=== PATIENT | male | born 1970 | race Caucasian/White ===

== ENCOUNTER 2022-02-11 02:43 | Emergency (ER) | payer BC ==
[~2022-02-11] VITALS: Ht 172.7 cm; Wt 76.2 kg
[2022-02-11 02:52] VITALS: BP_SYST 160
--- NOTE | 2022-02-11 02:56 | NUR ---
PER PATIENT, HAS BEEN HAVING LOWER ABDOMINAL PAIN X A FEW HOURS WITH ONE EPISODE OF VOMITING.
--- NOTE | 2022-02-11 03:17 | NUR ---
PATIENT BROUGHT TO ROOM 8 FOR EVAL, REPORT GIVEN TO DEANDRE LIANG.
--- NOTE | 2022-02-11 03:20 | NUR ---
PRINCE Maki at bedside examining patient.
[2022-02-11 03:49] LABS: BASOPHILS # (AUTO) 0.1 K/uL (0.0-0.2); BASOPHILS % (AUTO) 0.7 % (0.0-2.0); EOSINOPHILS # (AUTO) 0.3 K/uL (0.0-0.4); EOSINOPHILS % (AUTO) 2.3 % (0.0-4.0); HEMATOCRIT 40.9 % (36-54); HEMOGLOBIN 14.2 g/dL (14.0-18.0); LYMPHOCYTES # (AUTO) 2.5 K/uL (1.0-5.5); LYMPHOCYTES % (AUTO) 21.5 % (20.5-51.5); MEAN CORPUSCULAR HEMOGLOBIN 30 pg (27-31); MEAN CORPUSCULAR HGB CONC 35 % (32-36); MEAN CORPUSCULAR VOLUME 86 fL (79.0-98.0); MONOCYTES # (AUTO) 0.7 K/uL (0.0-1.0); MONOCYTES % (AUTO) 5.7 % (1.7-9.3); NEUTROPHILS # (AUTO) 8.3 K/uL (1.8-7.7); NEUTROPHILS % (AUTO) 69.8 % (40.0-70.0); PLATELET COUNT (AUTO) 263 K/uL (130-430); RED BLOOD CELL COUNT(AUTO) 4.77 MIL/uL (4.2-6.2); WHITE BLOOD COUNT (AUTO) 11.8 K/uL (4.8-10.8)
[2022-02-11 04:13] LABS: CALCIUM 9.8 mg/dL (8.4-11.0); CREATININE 1.05 mg/dL (0.55-1.30); POTASSIUM 3.8 mmol/L (3.5-5.1)
[2022-02-11 04:19] LABS: ALBUMIN 3.9 g/dL (3.4-4.8); TOTAL BILIRUBIN 0.3 mg/dL (0.0-1.0)
[2022-02-11] MEDS ORDERED: MORPHINE SULFATE 10 MG/ML VIAL IVP ONE (04:30)
[2022-02-11] MEDS ORDERED: NACL 0.9% 1,000 ML IV ONE (04:30)
[2022-02-11] MEDS ORDERED: ONDANSETRON HCL 4 MG/2 ML VIAL IVP ONE ×2 (04:30)
--- NOTE | 2022-02-11 05:30 | NUR ---
Report received from DEANDRE Gonzalez; assuming care of patient at this time.
--- NOTE | 2022-02-11 05:32 | NUR ---
Patient sleeping in bed with side rails raised. Patient's at bedside. Nad noted at this time.
[2022-02-11] MEDS ORDERED: MAG HYDROX/AL HYDROX/SIMETH 30 ML, LIDOCAINE VISCOUS 2% 15ML (PO) 15 ML, DICYCLOMINE HC... PO ONE ×3 (05:45)
--- NOTE | 2022-02-11 06:05 | NUR ---
PRINCE Maki at bedside.
[2022-02-11] MEDS ORDERED: ONDA-8 TL (06:19)
[2022-02-11 06:25] VITALS: BP_SYST 111
--- NOTE | 2022-02-11 06:25 | NUR ---
Patient given written and verbal discharge instructions and verbalizes understanding. ER MD discussed with patient the results and treatment provided. Patient in stable condition. ID arm band removed. IV catheter removed intact and dressing applied, no active bleeding. Rx of zofran given. Patient educated on pain management and to follow up with PMD. Pain Scale 0/10. Opportunity for questions provided and answered. Medication side effect fact sheet provided. Patient A/Ox4, VSS, ambulatory, resp even and unlabored. Nad noted at this time. Patient accompanied by and in stable condition upon discharge.
== END 2022-02-11 06:25 | disposition home or self-care (01) ==
LOC: SED 02:43
DX: R10.33 Periumbilical pain (principal); R10.13 Epigastric pain; R11.2 Nausea with vomiting, unspecified; J45.909 Unspecified asthma, uncomplicated; Z79.899 Other long term (current) drug therapy
CPT/HCPCS: 99284; 74176; 96374; 96361; 96375; 80053; 83690; 85025; 36415; 76376; J2001; J2405; J2270; J7030